=== PATIENT | male | born 1990 ===

== ENCOUNTER 2017-04-02 16:42 | Emergency (ER) | payer OTHER ==
[2017-04-02] MEDS ORDERED: LIDOCAINE 1% W/EPI MPF 10 ML SOL ONE (17:03)
[2017-04-02] MEDS ORDERED: BACITRACIN 500 U/GM OIN TOP ONE (17:17)
[2017-04-02 18:30] VITALS: RESP 16; TEMP 98.6
[2017-04-02 18:31] VITALS: BP 122/67; PULSE 86; O2SAT 100
== END 2017-04-02 17:36 | disposition home or self-care (01) ==
LOC: ED 16:42
DX: S01.112A Laceration without foreign body of left eyelid and periocular area, initial encounter (principal); Y04.0XXA Assault by unarmed brawl or fight, initial encounter
CPT/HCPCS: 99284